=== PATIENT | female | born 1985 | race African-American/Black ===

== ENCOUNTER 2016-12-22 18:43 | Inpatient (IN) | payer BC ==
[~2016-12-22] VITALS: Ht 157.5 cm; Wt 119.2 kg
[2016-12-22] VITALS (224 sets, daily range): BP systolic 169–199; BP diastolic 103–134; PULSE 97–107; TEMP 98.3–99; O2SAT 93–99
[2016-12-22] MEDS ORDERED: PRILOSEC 20MG20 MG (19:17)
[2016-12-22] MEDS ORDERED: ANTIHYPERTENSIVE (19:19)
[2016-12-23] VITALS (972 sets, daily range): BP systolic 109–152; BP diastolic 53–114; PULSE 97–111; TEMP 98.6–101.8; O2SAT 90–99
[2016-12-23 05:53] LABS: BASO # 0.1 (0.0-0.2); BASO % 0.7 % (0.0-2.0); EOS # 0.1 (0.0-0.7); EOS % 0.7 % (0-4.0); GRAN # 9.2 (1.4-6.5); GRAN % 79.5 % (42.2-75.2); LYMPH # 1.4 (1.2-3.4); LYMPH % 11.9 % (20.0-51.0); MEAN CELL VOLUME 75 fl (80.0-100.0); MEAN CORPUSCULAR HGB CONC 30 g/dl (33.0-37.0); MEAN PLATELET VOLUME 9.8 fl (7.4-10.4); MONO # 0.8 (0.1-0.6); MONO % 6.8 % (1.7-9.3); PLATELET COUNT 506 K/mm3 (130-400); RED BLOOD COUNT 4.14 M/mm3 (4.10-5.30); REDCELL DISTRIBUTION WIDTH-CV 15.6 % (11.5-14.5); WHITE BLOOD COUNT 11.6 K/mm3 (4.8-10.8)
[2016-12-23 06:01] LABS: HEMATOCRIT 31.2 % (37.0-47.0); HEMOGLOBIN 9.5 g/dl (12.5-16.0); MEAN CORPUSCULAR HEMOGLOBIN 23 pg (27.0-31.0)
[2016-12-23 06:07] LABS: CALCIUM 8.9 mg/dL (8.4-10.2); CREATININE, serum 1.05 mg/dL (0.52-1.25); POTASSIUM 3.3 mmol/L (3.4-5.0)
[2016-12-23 20:48] LABS: INFLUENZA B NEGATIVE
== END 2016-12-23 21:00 | disposition left against medical advice (07) | DRG 313 ==
LOC: IMCU 18:43
PROVIDERS: Internal Medicine
DX: R07.89 Other chest pain (principal); E44.1 Mild protein-calorie malnutrition; I10 Essential (primary) hypertension; H66.91 Otitis media, unspecified, right ear; E87.6 Hypokalemia; F41.9 Anxiety disorder, unspecified
CPT/HCPCS: OP; 99223-AI; 99233-AI; J0360; J1650; J1940; J2060